=== PATIENT | male | born 1950 | race Caucasian/White ===

== ENCOUNTER 2018-08-23 07:29 | Day surgery (SDC) | payer MEDICAID ==
[2018-08-23] MEDS ORDERED: PHENYLEPHRINE HCL 10 MG/ML VIAL IVP ONE (07:30)
[2018-08-23] MEDS ORDERED: LIDOCAINE 2% MDV (20MG/ML) 20ML VIAL IV ONE (07:30)
[2018-08-23] MEDS ORDERED: FENTANYL PF 100MCG/2ML VIAL IV ONE (07:30)
[2018-08-23] MEDS ORDERED: PROPOFOL 10 MG/ML VIAL IV ONE (07:30)
--- NOTE | 2018-08-24 09:50 | Operative Note ---
DATE OF SURGERY: 08/23/2018 OPERATION: COLONOSCOPY to the cecum with cold snare polypectomy x1. INDICATION: Anemia. Etiology unclear. Rule out primary colon pathology. His last examination was more than 10 years ago. His stool was Hemoccult negative. ANESTHESIA: Intravenous sedation was administered by the department of anesthesiology and included Diprivan titrated to effect. PROCEDURE: Following informed consent from this alert individual including a discussion of the risks and benefits of the procedure and an opportunity for the patient to ask questions, the patient was in the left lateral decubitus position. A digital rectal examination was performed. No abnormalities were noted. Following this, the Olympus [id number] video colonoscope was inserted into the rectum without resistance. The rectal mucosa had a normal appearance with normal folds and distensibility. The colonoscope was advanced up through the colon to the level of the cecum without much difficulty. Throughout the bowel the mucosa appeared normal, the folds were normal, and the bowel was fairly well distensible. There was fairly extensive diverticulosis noted in the sigmoid colon. There was no evidence of diverticulitis. The cecum was defined by noting the appendiceal orifice and ileocecal valve. The colon preparation was good. From the base of the cecum, the colonoscope was then withdrawn. In the transverse colon there was a diminutive 3-4 mm polyp noted which was removed with cold snare polypectomy and suctioned through the colonoscope into a collection trap. No other changes were appreciated. Again diverticulosis was apparent in the sigmoid region. The endoscope was withdrawn back into the rectum where retroflexion accomplished following air insufflation failed to demonstrate abnormalities. The endoscope was straightened and withdrawn. The patient tolerated the procedure well and was returned to the recovery area in stable condition. IMPRESSION: 1. Diminutive 3-4 mm polyp in the transverse colon removed with cold snare polypectomy. 2. Diverticulosis in the sigmoid colon. RECOMMENDATIONS: Further recommendations will be forthcoming pending results of pathology obtained today. Followup will be with Dr. Delgado and Dr. Dalton Diaz. As always, thank you for allowing me to participate in the care of your patient. CC: Pj Diaz, DO Dr. Sandy HINSON
--- NOTE | 2018-08-24 10:20 | Operative Note ---
DATE OF SURGERY: 08/23/2018 OPERATION: ESOPHAGOGASTRODUODENOSCOPY. INDICATION: Anemia. Etiology unclear. The patient did have a negative Hemoccult. Upper endoscopy is performed at this time for further evaluation. He denies any upper GI tract symptoms. ANESTHESIA: Intravenous sedation was administered by the department of anesthesiology and included Diprivan titrated to effect. PROCEDURE: Following informed consent from this alert individual, including a discussion of the risks and benefits of the procedure and an opportunity for the patient to ask questions, the patient was in the left lateral decubitus position. The Olympus [id number] video endoscope was inserted into the esophagus without resistance. The proximal esophagus had a normal appearance with normal folds and distensibility. The mid esophagus likewise was free from abnormalities. At the gastroesophageal junction, there was a small 7 mm very superficial ulceration which did not appear to be bleeding. The structure was traversed. The stomach was entered and found to be unremarkable. There were no ulcerations or erosions noted. The pylorus was patent. The duodenal bulb, sweep and descending duodenum were examined in a serial fashion and found to be normal. The endoscope was then withdrawn back into the body of the stomach where retroflexion accomplished following air insufflation failed to demonstrate any additional changes. The endoscope was then straightened and withdrawn back through the esophagus. Again a small superficial ulceration was noted. No other changes were appreciated. The endoscope was withdrawn. The patient tolerated the procedure well and was returned to the recovery area in stable condition. IMPRESSION: 1. A 7 mm superficial ulceration at the gastroesophageal junction. 2. The remainder of the upper endoscopy was unremarkable. RECOMMENDATION: The patient will be started on Pepcid 20 mg twice daily if okay with Nephrology. He will undergo colonoscopy at this time as well. As always, thank you for allowing me to participate in the care of your patient. CC: Pj Diaz, DO Dr. Sandy HINSON
== END 2018-08-23 10:25 | disposition home or self-care (01) ==
LOC: HOP 07:29
PROVIDERS: ATTEND Internal Medicine Gastroenterology
DX: D64.9 Anemia, unspecified (principal); K25.9 Gastric ulcer, unspecified as acute or chronic, without hemorrhage or perforation; K57.30 Diverticulosis of large intestine without perforation or abscess without bleeding; E78.00 Pure hypercholesterolemia, unspecified; E11.9 Type 2 diabetes mellitus without complications; Z86.79 Personal history of other diseases of the circulatory system; M10.9 Gout, unspecified; F32.9 Major depressive disorder, single episode, unspecified
CPT/HCPCS: 45378; 43235; 00813; J3010; J2370